=== PATIENT | male | born 1995 | race African-American/Black ===

== ENCOUNTER 2025-05-28 17:54 | Emergency (ER) | payer OTHER ==
[~2025-05-28] VITALS: Ht 185.4 cm; Wt 126.6 kg
[2025-05-28 17:57] VITALS: BP 142/90; TEMP 97.4; O2SAT 99
== END 2025-05-28 18:41 | disposition home or self-care (01) ==
LOC: M ED 17:54
DX: M54.50 Low back pain, unspecified (principal); M25.512 Pain in left shoulder